=== PATIENT | female | born 1970 | race African-American/Black ===

== ENCOUNTER 2016-08-03 19:11 | Emergency (ER) | payer MEDICAID ==
[~2016-08-03] VITALS: Ht 162.6 cm; Wt 90.7 kg
[~2016-08-03 19:11] MED LIST: CYCLOBENZAPRINE10 MG ORAL; CYCLOBENZAPRINE10 MG PO; IBUPROFEN800 MG ORAL; NAPROXEN375 MG PO; NKM
[2016-08-03 20:35] VITALS: BP 125/85
[2016-08-03] MEDS ORDERED: Metoclopramide 10mg/10ml Liq ORAL ONE (21:00)
[2016-08-03] MEDS ORDERED: IBUPROFEN600 MG ORAL (22:38)
[2016-08-03] MEDS ORDERED: ZOFRAN4 M3 ORAL (22:38)
[2016-08-03 22:45] VITALS: BP 105/69
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
--- NOTE | 2016-08-04 08:58 | Diagnostic Imaging Report ---
Indication: PAIN headache Technique: Continuous helical CT scanning of the head was performed without intravenous contrast material. Axial and coronal 5 mm sections were generated. Radiation dose was minimized using automated exposure control Dose: Total Dose Length Product - DLP [address] Dose Index - CTDIvol(s) 70.38 mGy. Comparison: None Findings: The ventricular system is normal in size and configuration. There is no shift of midline structures. No abnormal extra-axial fluid collections are noted. There is no evidence of intracerebral bleeding. No other abnormal high or low density areas are noted within the brain. Intact calvarium. Visualized orbits and sinuses are unremarkable. Impression: Normal CT scan of the head without contrast material. This agrees with the preliminary interpretation provided overnight by [facility]erad[facility] service. The CT scanner at [facility] is accredited by the [employer] and the scans are performed using protocols designed to limit radiation exposure to as low as reasonably achievable to attain images of sufficient resolution adequate for diagnostic evaluation.
--- NOTE | 2016-08-04 13:35 | Diagnostic Imaging Report ---
Indication: PAIN Technique: 3 views of the right knee Comparison: None Findings:No acute fractures. No dislocations. The joint spaces are preserved. Impression:Negative
== END 2016-08-03 22:51 | disposition home or self-care (01) ==
LOC: EMR 20:10
DX: S00.03XA Contusion of scalp, initial encounter (principal); V43.52XA Car driver injured in collision with other type car in traffic accident, initial encounter; S86.911A Strain of unspecified muscle(s) and tendon(s) at lower leg level, right leg, initial encounter; R11.0 Nausea; Z88.0 Allergy status to penicillin; Y93.9 Activity, unspecified; Y92.410 Unspecified street and highway as the place of occurrence of the external cause
CPT/HCPCS: 70450; 99284